=== PATIENT | male | born 1955 | race Caucasian/White ===

== ENCOUNTER 2016-06-01 06:37 | Day surgery (SDC) | payer OTHER ==
[~2016-06-01] VITALS: Ht 185.4 cm; Wt 129.7 kg
[~2016-06-01 06:37] MED LIST: ASPIRIN E.C. 8181 MG PO; CALCIUM/MG/ZINC PO; CEPHALEXIN500 M1 PO; COZAAR100 MG PO; LISINOPRIL PO; LOPRESSOR 550 MG/TAB PO; MULTAQ400 MG PO; MVI PO; PERCOCET 5/321 UDTAB PO; PREDNISONE20 MG PO
[2016-06-01 07:16] VITALS: BP 140/77; PULSE 525; TEMP 97
[2016-06-01 08:25] VITALS: BP 112/68; PULSE 55; TEMP 97
[2016-06-01 08:40] VITALS: BP 114/80; PULSE 53
[2016-06-01 08:55] VITALS: BP 114/64; PULSE 50
== END 2016-06-01 09:05 | disposition home or self-care (01) ==
LOC: SDCO 06:37
DX: Z12.11 Encounter for screening for malignant neoplasm of colon (principal); D12.0 Benign neoplasm of cecum; K57.30 Diverticulosis of large intestine without perforation or abscess without bleeding; I10 Essential (primary) hypertension; I48.91 Unspecified atrial fibrillation
CPT/HCPCS: OP; J2250; J3010; J7030

== ENCOUNTER 2018-01-29 07:28 | Inpatient (IN) | payer OTHER ==
[~2018-01-29] VITALS: Ht 185.4 cm; Wt 133.6 kg
[2018-01-29] MEDS ORDERED: ELIQUIS 5MG PO (07:46)
[2018-01-29 08:03] VITALS: BP 117/61; PULSE 95; TEMP 98
[2018-01-29] MEDS ORDERED: ASPIRIN 81M81 MG/TA2 PO (08:35)
[2018-01-29] MEDS ORDERED: VITAMIN C500 MG PO (08:35)
[2018-01-29] MEDS ORDERED: MULTI VITAMINS1 TAB PO (08:35)
[2018-01-29] MEDS ORDERED: OMEGA-3 1000 MG1 CAP PO (08:37)
[2018-01-29] MEDS ORDERED: CALCIUM-MAGNES1 EAC1 PO (08:38)
[2018-01-29] MEDS ORDERED: B-12 100 MCG PO (08:38)
[2018-01-29 09:07] LABS: BASO % 0.6 % (0.0-2.0); EOS # 0.1 (0.0-0.7); EOS % 3.6 % (0-4.0); GRAN # 1.5 (1.4-6.5); GRAN % 47.9 % (42.2-75.2); HEMATOCRIT 37.7 % (42.0-52.0); HEMOGLOBIN 13.2 g/dl (13.5-18.0); LYMPH # 0.9 (1.2-3.4); LYMPH % 30.4 % (20.0-51.0); MEAN CELL VOLUME 96 fl (80.0-100.0); MEAN CORPUSCULAR HEMOGLOBIN 34 pg (27.0-31.0); MEAN CORPUSCULAR HGB CONC 35 g/dl (33.0-37.0); MEAN PLATELET VOLUME 10.6 fl (7.4-10.4); MONO # 0.5 (0.1-0.6); MONO % 17.2 % (1.7-9.3); PLATELET COUNT 134 K/mm3 (130-400); RED BLOOD COUNT 3.91 M/mm3 (4.20-5.60); REDCELL DISTRIBUTION WIDTH-CV 12.6 % (11.5-14.5)
[2018-01-29 09:11] LABS: INR 1.3 (0.8-3.0); PROTHROMBIN TIME 14.6 SECONDS (9.7-12.8)
[2018-01-29 09:18] LABS: ALBUMIN 3.4 gm/dL (3.5-5.0); BILIRUBIN,TOTAL 0.7 mg/dL (0.0-1.0); CALCIUM 9.1 mg/dL (8.4-10.2); CREATININE, serum 0.97 mg/dL (0.66-1.25); MAGNESIUM 1.9 mg/dL (1.6-2.3); POTASSIUM 4.4 mmol/L (3.4-5.0); TOTAL PROTEIN 6.6 gm/dL (6.4-8.2)
[2018-01-29 11:32] VITALS: BP 146/54; PULSE 46; TEMP 98.7
[2018-01-29 17:17] VITALS: BP 148/75; PULSE 48; TEMP 97.8
[2018-01-29 19:45] VITALS: BP 134/72; PULSE 51; TEMP 98.7
[2018-01-30 01:27] VITALS: BP 113/55; PULSE 48; TEMP 97.4
[2018-01-30 06:46] LABS: BASO % 0.3 % (0.0-2.0); EOS # 0.1 (0.0-0.7); EOS % 3.8 % (0-4.0); GRAN # 1.6 (1.4-6.5); GRAN % 50.4 % (42.2-75.2); HEMATOCRIT 39.2 % (42.0-52.0); HEMOGLOBIN 13.6 g/dl (13.5-18.0); LYMPH % 31.7 % (20.0-51.0); MEAN CELL VOLUME 96 fl (80.0-100.0); MEAN CORPUSCULAR HEMOGLOBIN 33 pg (27.0-31.0); MEAN CORPUSCULAR HGB CONC 35 g/dl (33.0-37.0); MONO # 0.4 (0.1-0.6); MONO % 13.8 % (1.7-9.3); PLATELET COUNT 125 K/mm3 (130-400); RED BLOOD COUNT 4.07 M/mm3 (4.20-5.60); REDCELL DISTRIBUTION WIDTH-CV 12.3 % (11.5-14.5)
[2018-01-30 07:06] LABS: CALCIUM 8.8 mg/dL (8.4-10.2); CREATININE, serum 0.9 mg/dL (0.66-1.25); MAGNESIUM 1.8 mg/dL (1.6-2.3)
[2018-01-30 08:00] VITALS: BP 117/58; PULSE 48; TEMP 97.6
[2018-01-30 12:18] VITALS: BP 136/67; PULSE 53; TEMP 98
[2018-01-30 16:00] VITALS: BP 132/68; PULSE 51; TEMP 98
[2018-01-30 20:16] VITALS: BP 128/68; PULSE 51; TEMP 98.2
[2018-01-30 23:19] VITALS: BP 116/59; PULSE 50; TEMP 97.8
[2018-01-31 04:35] VITALS: BP 115/58; PULSE 50; TEMP 97.7
[2018-01-31 06:12] LABS: BASO % 0.6 % (0.0-2.0); EOS # 0.1 (0.0-0.7); GRAN # 1.8 (1.4-6.5); GRAN % 54.1 % (42.2-75.2); HEMATOCRIT 39.6 % (42.0-52.0); HEMOGLOBIN 13.8 g/dl (13.5-18.0); LYMPH # 0.9 (1.2-3.4); LYMPH % 27.8 % (20.0-51.0); MEAN CELL VOLUME 97 fl (80.0-100.0); MEAN CORPUSCULAR HEMOGLOBIN 34 pg (27.0-31.0); MEAN CORPUSCULAR HGB CONC 35 g/dl (33.0-37.0); MEAN PLATELET VOLUME 11.5 fl (7.4-10.4); MONO # 0.5 (0.1-0.6); MONO % 14.5 % (1.7-9.3); PLATELET COUNT 126 K/mm3 (130-400); REDCELL DISTRIBUTION WIDTH-CV 12.2 % (11.5-14.5)
[2018-01-31 06:31] LABS: CALCIUM 8.9 mg/dL (8.4-10.2); CREATININE, serum 0.84 mg/dL (0.66-1.25); MAGNESIUM 1.8 mg/dL (1.6-2.3); POTASSIUM 3.9 mmol/L (3.4-5.0)
[2018-01-31 07:24] VITALS: BP 139/77; PULSE 52; TEMP 97.9
[2018-01-31] MEDS ORDERED: BETAPACE 80MG80 MG PO (09:00)
== END 2018-01-31 12:19 | disposition home or self-care (01) | DRG 310 ==
LOC: MEDICAL 07:28
PROVIDERS: Internal Medicine Cardiovascular Disease
DX: I48.0 Paroxysmal atrial fibrillation (principal); I10 Essential (primary) hypertension; Z87.891 Personal history of nicotine dependence

== ENCOUNTER 2021-12-29 06:31 | Day surgery (SDC) | payer OTHER ==
[~2021-12-29] VITALS: Ht 185.4 cm; Wt 126.4 kg
[~2021-12-29 06:31] MED LIST changes: +ASPIRIN 81M81 MG/TA2 PO; +B-12 100 MCG PO; +BETAPACE 80MG80 MG PO; +CALCIUM-MAGNES1 EAC1 PO; +ELIQUIS 5MG PO; +MULTI VITAMINS1 TAB PO; +OMEGA-3 1000 MG1 CAP PO; +VITAMIN C500 MG PO
[2021-12-29] MEDS ORDERED: TOPROL XL 50MG50 MG PO (06:56)
[2021-12-29] MEDS ORDERED: XARELTO20 MG PO (06:57)
[2021-12-29 07:15] VITALS: BP 147/77; PULSE 51; TEMP 97.9
[2021-12-29 08:05] VITALS: BP 113/62; PULSE 51; TEMP 97.1
[2021-12-29 08:20] VITALS: BP 122/70; PULSE 47
[2021-12-29 08:35] VITALS: BP 129/70; PULSE 46
--- NOTE | 2021-12-29 08:57 | NUR ---
0805: Patient arrived back into [facility] from Endo procedure. Patient is alert and awake. Vital signs stable on room air. Report received from KODAK Louis. Patient requesting apple juice and applesauce. Patient denies pain and nausea. Call light left within reach. at bedside. 0820: Patient vitally stable. Tolerating food and drink well. Denies pain or nausea at this time. 0845: MD in to see patient. 0850: Patient meets discharge criteria. IV removed without complications. Went through discharge instructions with patient and Patient got dressed. Escorted to patient entrance via wheelchair. Patient left in the care of his .
== END 2021-12-29 08:50 | disposition home or self-care (01) ==
LOC: SDCO 06:31
DX: Z12.11 Encounter for screening for malignant neoplasm of colon (principal); K57.30 Diverticulosis of large intestine without perforation or abscess without bleeding
CPT/HCPCS: J7030